=== PATIENT | female | born 1990 | race Asian ===

== ENCOUNTER 2017-07-20 00:15 | Emergency (ER) | payer BC, OTHER ==
[~2017-07-20] VITALS: Ht 167.6 cm; Wt 68.0 kg
[2017-07-20] MEDS ORDERED: ABILIFY20 MG IM (02:14)
[2017-07-20 02:30] LABS: BASOPHILS % (AUTO) 0.8 % (0.0-2.0); EOSINOPHILS % (AUTO) 0.4 % (0.0-3.0); HEMOGLOBIN 14.4 G/DL (12.0-16.0); LYMPHOCYTES % (AUTO) 15.4 % (20.0-45.0); MEAN CORPUSCULAR VOLUME 94 FL (80-99); MONOCYTES % (AUTO) 7.8 % (1.0-10.0); NEUTROPHILS % (AUTO) 75.6 % (45.0-75.0); PLATELET COUNT 364 K/UL (150-450); RED BLOOD COUNT 4.58 M/UL (4.20-5.40); RED CELL DISTRIBUTION WIDTH 11.2 % (11.6-14.8); WHITE BLOOD COUNT 10.2 K/UL (4.8-10.8)
[2017-07-20 02:44] LABS: ANION GAP 9 mmol/L (5-15); BLOOD UREA NITROGEN 10 mg/dL (7-18); CALCIUM 8.5 MG/DL (8.5-10.1); CARBON DIOXIDE 25 MMOL/L (21-32); CHLORIDE 108 MMOL/L (98-107); CREATININE 0.7 MG/DL (0.55-1.30); POTASSIUM 3.6 MMOL/L (3.5-5.1); SODIUM 142 MMOL/L (136-145)
[2017-07-20 02:50] LABS: ALANINE AMINOTRANSFERASE 25 U/L (12-78); ALBUMIN 4.3 G/DL (3.4-5.0); ALBUMIN/GLOBULIN RATIO 1.2 (1.0-2.7); ALKALINE PHOSPHATASE 58 U/L (46-116); ASPARTATE AMINO TRANSFERASE 21 U/L (15-37); BILIRUBIN,TOTAL 0.3 MG/DL (0.2-1.0)
[2017-07-20 03:08] LABS: BILIRUBIN, URINE NEGATIVE (NEGATIVE); GLUCOSE, URINE (UA) NEGATIVE (NEGATIVE); KETONES,URINE 2+ (NEGATIVE); LEUKOCYTE ESTERASE ,URINE 1+ (NEGATIVE); NITRITE,URINE NEGATIVE (NEGATIVE); PH,URINE 5 (4.5-8.0); PROTEIN,URINE 1+ (NEGATIVE); UROBILINOGEN,URINE NORMAL MG/DL (0.0-1.0)
[2017-07-20 03:19] LABS: APPEARANCE,URINE CLOUDY; COLOR,URINE YELLOW
[2017-07-20] MEDS ORDERED: Haloperidol 5mg/ml Inj IM ONE (06:30)
[2017-07-20] MEDS ORDERED: LORazepam Inj 2mg/ml 1ml IM ONE (06:30)
[2017-07-20] MEDS ORDERED: DiphenhydrAMINE 50mg/ml Inj ONE (06:31)
[2017-07-20] MEDS ORDERED: DiphenhydrAMINE 50mg/ml Inj IM ONE (06:45)
[2017-07-20 08:16] VITALS: BP 123/87
--- NOTE | 2017-07-20 08:27 | Emergency Room Report ---
History of Present Illness General Chief Complaint: General Complaint Source: EMS Present Illness HPI 27-year-old female presents ED for evaluation. Patient brought in by EMS. [employer] on-site stating that patient is a danger to herself and they will placed on 5150 hold. Patient's mother call 911 stating that patient endorsed suicidal ideation. Patient denies picking such claims. States that she is not suicidal or wants to leave. States that she used to take antipsychotics but was misdiagnosed and no longer takes any medication. Patient has history of seizures and takes Trileptal. No other aggravating relieving factors. Denies any other associated symptoms Allergies: Coded Allergies: No Known Allergies (Verified , 11/22/11) Patient History Past Medical History: psych hx Past Surgical History: none Pertinent Family History: none Social History: Denies: smoking, alcohol use, drug use Last Menstrual Period: jun 2018 Now: No Immunizations: UTD Reviewed Nursing Documentation: PMH: Agreed, PSxH: Agreed Nursing Documentation-PMH Past Medical History: No History, Except For History Of Psychiatric Problem: Yes Review of Systems All Other Systems: negative except mentioned in HPI Physical Exam Vital Signs Date Time Temp Pulse Resp B/P (MAP) Pulse Ox O2 Delivery O2 Flow Rate FiO2 07/19/17 23:58 98.6 110 20 122/89 99 07/20/17 08:16 Room Air Sp02 EP Interpretation: reviewed, normal General Appearance: no apparent distress, alert, GCS 15, non-toxic Head: normocephalic, atraumatic Eyes: bilateral eye normal inspection, bilateral eye PERRL ENT: hearing grossly normal, normal pharynx, no angioedema, normal voice Neck: full range of motion, supple/symm/no masses Respiratory: chest non-tender, lungs clear, normal breath sounds, speaking full sentences Cardiovascular #1: regular rate, rhythm, no edema Cardiovascular #2: 2+ carotid (R), 2+ carotid (L), 2+ radial (R), 2+ radial (L) , 2+ dorsalis pedis (R), 2+ dorsalis pedis (L) Gastrointestinal: normal bowel sounds, non tender, soft, non-distended, no guarding, no rebound Rectal: deferred Genitourinary: normal inspection, no CVA tenderness Musculoskeletal: back normal, gait/station normal, normal range of motion, non- tender Neurologic: alert, oriented x3, responsive, motor strength/tone normal, sensory intact, speech normal Psychiatric: judgement/insight normal, memory normal, mood/affect normal, no suicidal/homicidal ideation Reflexes: 3+ bicep (R), 3+ bicep (L), 3+ tricep (R), 3+ tricep (L), 3+ knee (R) , 3+ knee (L) Skin: normal color, no rash, warm/dry, well hydrated Lymphatic: no adenopathy Medical Decision Making Diagnostic Impression: Primary Impression: Psychosis Qualified Codes: F29 - Unspecified psychosis not due to a substance or known physiological condition ER Course Hospital Course 27-year-old female presents to ED for suicidal ideation. Differential diagnoses include: Major depressive disorder, unspecified psychosis , EtOH abuse, drug abuse Clinical course Patient placed on stretcher. On one to one observation. After initial history and physical I ordered labs, U. tox Labs-electrolytes normal, aspirin/Tylenol levels normal, EtOH level normal, U. tox +BZs, THC Initially patient was cooperative but then later became very agitated and combative. Swelling aggressive psychotic behavior. Patient was sedated using Haldol/Ativan/Benadryl Patient is medically cleared and pending psychiatric evaluation. i. I feel this is a highly complex case requiring extensive working including EKG/Rhythm strip, Xray/CT/US, Blood/urine lab work, repeat exams while in ED, and administration of strong opiates/narcotics for pain control, admission to hospital or close patient follow up. Labs Test 07/20/17 01:38 07/20/17 02:38 07/20/17 04:00 White Blood Count 10.2 K/UL (4.8-10.8) Red Blood Count 4.58 M/UL (4.20-5.40) Hemoglobin 14.4 G/DL (12.0-16.0) Hematocrit 43.0 % (37.0-47.0) Mean Corpuscular Volume 94 FL (80-99) Mean Corpuscular Hemoglobin 31.4 PG (27.0-31.0) Mean Corpuscular Hemoglobin Concent 33.5 G/DL (32.0-36.0) Red Cell Distribution Width 11.2 % (11.6-14.8) Platelet Count 364 K/UL (150-450) Mean Platelet Volume 6.1 FL (6.5-10.1) Neutrophils (%) (Auto) 75.6 % (45.0-75.0) Lymphocytes (%) (Auto) 15.4 % (20.0-45.0) Monocytes (%) (Auto) 7.8 % (1.0-10.0) Eosinophils (%) (Auto) 0.4 % (0.0-3.0) Basophils (%) (Auto) 0.8 % (0.0-2.0) Sodium Level 142 MMOL/L (136-145) Potassium Level 3.6 MMOL/L (3.5-5.1) Chloride Level 108 MMOL/L (98-107) Carbon Dioxide Level 25 MMOL/L (21-32) Anion Gap 9 mmol/L (5-15) Blood Urea Nitrogen 10 mg/dL (7-18) Creatinine 0.7 MG/DL (0.55-1.30) Estimat Glomerular Filtration Rate > 60 mL/min (>60) Glucose Level 86 MG/DL (74-106) Calcium Level 8.5 MG/DL (8.5-10.1) Total Bilirubin 0.3 MG/DL (0.2-1.0) Aspartate Amino Transf (AST/SGOT) 21 U/L (15-37) Alanine Aminotransferase (ALT/SGPT) 25 U/L (12-78) Alkaline Phosphatase 58 U/L (46-116) Total Protein 8.0 G/DL (6.4-8.2) Albumin 4.3 G/DL (3.4-5.0) Globulin 3.7 g/dL Albumin/Globulin Ratio 1.2 (1.0-2.7) Salicylates Level 4.6 ug/mL (2.8-20) Acetaminophen Level < 2 MCG/ML (10-30) Serum Alcohol < 3 mg/dL Urine Color Yellow Urine Appearance Cloudy Urine pH 5 (4.5-8.0) Urine Specific [place] 1.030 (1.005-1.035) Urine Protein 1+ (NEGATIVE) Urine Glucose (UA) Negative (NEGATIVE) Urine Ketones 2+ (NEGATIVE) Urine Occult Blood Negative (NEGATIVE) Urine Nitrite Negative (NEGATIVE) Urine Bilirubin Negative (NEGATIVE) Urine Urobilinogen Normal MG/DL (0.0-1.0) Urine Leukocyte Esterase 1+ (NEGATIVE) Urine RBC 0-2 /HPF (0 - 2) Urine WBC 0-2 /HPF (0 - 2) Urine Squamous Epithelial Cells Many /LPF (NONE/OCC) Urine Calcium Oxalate Crystals Few /LPF (NONE) Urine Bacteria Moderate /HPF (NONE) Urine HCG, Qualitative Negative Urine Opiates Screen Negative (NEGATIVE) Urine Barbiturates Screen Negative (NEGATIVE) Phencyclidine (PCP) Screen Negative (NEGATIVE) Urine Amphetamines Screen Negative (NEGATIVE) Urine Benzodiazepines Screen Positive (NEGATIVE) Urine Cocaine Screen Negative (NEGATIVE) Urine Marijuana (THC) Screen Positive (NEGATIVE) Last Vital Signs Date Time Temp Pulse Resp B/P (MAP) Pulse Ox O2 Delivery O2 Flow Rate FiO2 07/20/17 08:16 85 14 123/87 96 Room Air 07/19/17 23:58 98.6 Status: improved Disposition: XFER TO PSYCH HOSP/UNIT Condition: Serious Referrals: NOT CHOSEN IPA/,REFERRING (PCP) RYAN COX M.D. Jul 20, 2017 08:27
[2017-07-20 13:47] VITALS: BP_SYST 102; BP_SYST 123; BP_DIAS 59; BP_DIAS 87
== END 2017-07-20 13:49 ==
LOC: EDBD 00:15 → EMR 00:30
DX: F29 Unspecified psychosis not due to a substance or known physiological condition (principal); F91.8 Other conduct disorders
CPT/HCPCS: 36415; 80053; 80307; 81003; 81025; 85025; 87086; 96372; 99285; G0480; J1200; J1630; 80329